=== PATIENT | male | born 1965 ===

== ENCOUNTER → 2017-06-12 06:59 | Outpatient (CLI) | payer OTHER | END | disposition home or self-care (01) | LOC: LAB 06:59 | DX: N18.3 Chronic kidney disease, stage 3 (moderate) (principal) ==

== ENCOUNTER 2017-06-16 12:53 | Outpatient (CLI) | payer OTHER | END 2017-06-16 12:59 | disposition home or self-care (01) | LOC: LAB 12:53 | DX: N30.00 Acute cystitis without hematuria (principal); R82.79 Other abnormal findings on microbiological examination of urine ==